=== PATIENT | female | born 1975 | race Hispanic/Latino ===

== ENCOUNTER 2017-04-15 13:42 | Emergency (ER) | payer MEDICAID, OTHER ==
[2017-04-15 13:43] VITALS: BMI 25.4
[2017-04-15 14:51] LABS: ACETAMINOPHEN < 10.0 ug/ml (10.0-20.0); SALICYLATE < 1 mg/dL (2.0-20.0)
[2017-04-15 14:52] LABS: ALB/GLOB RATIO 1.5 (1.1-1.8); ALBUMIN 4.4 g/dL (3.0-4.8); ALT/SGPT 26 U/L (7-56); AST/SGOT 23 U/L (14-36); BLOOD UREA NITROGEN 10 mg/dL (7-21); CALCIUM 9.8 mg/dL (8.4-10.5); GFR AFRICAN-AMERICAN > 60; GFR NON-AFRICAN AMERICAN > 60
[2017-04-15 15:07] LABS: HEMOGLOBIN 12.7 g/dL (12.0-16.0); MEAN CELL VOLUME 97.1 fl (80.0-105.0); MEAN CORPUSCULAR HEMOGLOBIN 30.7 pg (25.0-35.0); MEAN CORPUSCULAR HGB CONC 31.6 g/dl (31.0-37.0); RBC 4.14 10^6/uL (3.5-6.1)
[2017-04-15 15:08] LABS: BASO # 0.04 K/mm3 (0.0-2.0); BASO % 0.4 % (0.0-3.0); EOS # 0.5 (0.0-0.7); EOS % 5.3 % (1.5-5.0); GRAN # 6.16 (1.4-6.5); GRAN % 61.5 % (50.0-68.0); LYMPH # 2.7 (1.2-3.4); LYMPH % 27.2 % (22.0-35.0); MEAN PLATELET VOLUME 13.2 fl (7.0-11.0); MONO # 0.6 (0.1-0.6); MONO % 5.6 % (1.0-6.0); RED CELL DISTRIBUTION WIDTH 12.9 % (11.5-14.5)
[2017-04-15 15:13] LABS: PH,URINE 6.5 (4.7-8.0); URINE BILIRUBIN NEGATIVE (NEGATIVE); URINE BLOOD NEGATIVE (NEGATIVE); URINE GLUCOSE (UA) NEGATIVE (NEGATIVE); URINE LEUKOCYTE ESTERASE TRACE Leu/uL (NEGATIVE); URINE NITRATE NEGATIVE (NEGATIVE); URINE PROTEIN TRACE mg/dL (<30 mg/dL); URINE UROBILINOGEN 0.2 E.U./dL (<1 E.U./dL)
[2017-04-15 15:17] LABS: BARBITURATES, UR NEGATIVE (NEGATIVE); BENZODIAZEPINES, UR NEGATIVE (NEGATIVE); OPIATES, UR NEGATIVE (NEGATIVE); PHENCYCLIDINE, UR NEGATIVE (NEGATIVE)
[2017-04-15 15:24] LABS: URINE COLOR YELLOW (YELLOW)
[2017-04-15 15:45] LABS: URINE APPEARANCE SL CLOUDY (CLEAR); URINE BACTERIA MANY (NEG); URINE RBC NEGATIVE /hpf (0-2)
--- NOTE | 2017-04-15 17:05 | ED PDOC ---
Arrival/HPI - General Historian: Patient - History of Present Illness Time/Duration: Prior to Arrival - General Chief Complaint: Psychiatric Evaluation Time Seen by Provider: 04/15/17 14:17 - History of Present Illness Narrative History of Present Illness (Text): 04/15/17 17:00 42-year-old female brought in by ambulance for psychiatric evaluation. Patient with a history of PTSD presents today with family's concern for possible attempt at suicide. Patient states she was looking up how euthanasia is illegal. Patient states she she thinks people who have cancer have the right to refuse treatment and have the right to be killed. Patient states if you have PTSD you should have the right to be killed because there is no cure. She denies chest pain or shortness of breath. Denies headache dizziness or weakness. Denies any other complaints. (Marisela Hurst) Past Medical History - Provider Review Nursing Documentation Reviewed: Yes - Travel History Have you recently traveled outside [place] w/in the past 3 mons?: No - Infectious Disease Hx of Infectious Diseases: None - Reproductive Menopause: No - Cardiac Hx Cardiac Disorders: No Hx Hypertension: No - Pulmonary Hx Tuberculosis: No - Neurological HX Cerebrovascular Accident: No Hx Seizures: No - Hematological/Oncological Hx Cancer: No - Psychiatric Hx Bipolar Disorder: Yes Hx Depression: Yes Hx Panic Disorder: Yes Hx Substance Use: Yes - Surgical History Hx Section: Yes (x2) Hx Tubal Ligation: Yes - Anesthesia Hx Anesthesia Reactions: No Hx Malignant Hyperthermia: No Family/Social History - Physician Review Nursing Documentation Reviewed: Yes Family/Social History: Unknown Family HX Smoking Status: Current Some Days Smoker Hx Alcohol Use: Yes Hx Substance Use: Yes Substance used: marijuana Allergies/Home Meds Allergies/Adverse Reactions: Allergies No Known Allergies Allergy (Verified 04/15/17 14:03) Home Medications: Home Meds Medication Instructions Recorded Confirmed Zolpidem [Ambien] 10 mg PO HS 08/18/15 04/15/17 clonazePAM [clonAZEPAM] 1 mg PO DAILY 08/18/15 04/15/17 Review of Systems - Review of Systems Constitutional: absent: Fatigue, Fevers Respiratory: absent: SOB, Cough Cardiovascular: absent: Chest Pain, Palpitations Gastrointestinal: absent: Abdominal Pain, Nausea, Vomiting Genitourinary Female: absent: Dysuria, Frequency, Vaginal Bleeding Musculoskeletal: absent: Arthralgias, Back Pain, Neck Pain Skin: absent: Rash, Pruritis Neurological: absent: Headache, Dizziness Psychiatric: Depression, Suicidal Ideation Physical Exam Vital Signs Reviewed: Yes Temperature: Afebrile Blood Pressure: Hypertensive Pulse: Regular Respiratory Rate: Normal Appearance: Positive for: Well-Appearing, Non-Toxic, Comfortable Pain Distress: None Mental Status: Positive for: Alert and Oriented X 3 - Systems Exam Head: Present: Atraumatic Mouth: Present: Moist Mucous Membranes Neck: Present: Normal Range of Motion Respiratory/Chest: Present: Clear to Auscultation, Good Air Exchange. No: Respiratory Distress, Accessory Muscle Use Cardiovascular: Present: Regular Rate and Rhythm, Normal S1, S2. No: Murmurs Abdomen: No: Tenderness, Distention, Rebound, Guarding Back: Present: Normal Inspection Upper Extremity: Present: Normal ROM Lower Extremity: Present: Normal ROM Neurological: Present: GCS=15, Speech Normal Skin: Present: Warm, Dry, Normal Color. No: Rashes Psychiatric: Present: Alert, Oriented x 3, Depressed Mood Vital Signs Temp Pulse Resp BP Pulse Ox 04/15/17 22:42 100 H 18 162/88 H 97 04/15/17 19:46 98.3 F 71 18 140/67 97 04/15/17 18:08 95 H 18 155/76 H 98 04/15/17 13:57 98.6 F 96 H 16 171/91 H 98 Medical Decision Making ED Course and Treatment: 04/15/17 17:06 Patient is nontoxic well-appearing in no distress vital signs are stable. CBC WNL CMP WNL Tylenol WNL Salicylate WNL Alcohol level WNL Urine drug screen + marijuana UA; trace leukocytes cxr: wnl ekg normal sinus rhythm at 80 bpm normal axis normal intervals no ST elevations pt started on macrobid for UTI. pt is medically cleared for PES evaluation Patient was seen and evaluated by PES screener: rodríguez/ pt refused voluntary admission. pt became agitated in er; benadry and ativan given; restraints were ordered but not utilized as patient became cooperative. pt is pending [facility] evaluation. pt was seen by [facility] screener and accepted for involuntary psychiatric admission Impression; depression, SI 04/15/17 01:57 case signed out to dr. parisi pending [facility] bed availability (Marisela Hurst) 04/16/17 07:00 Case was endorsed to .Pt. awaiting bed availability/transfer. ( Kristofer Parisi) - Lab Interpretations Lab Results: 04/15/17 14:20 04/15/17 14:20 Lab Results 04/15/17 17:00: Urine HCG, Qual Negative 04/15/17 14:30: Urine Opiates Screen Negative, Urine Methadone Screen Negative, Ur Barbiturates Screen Negative, Ur Phencyclidine Scrn Negative, Ur Amphetamines Screen Negative, U Benzodiazepines Scrn Negative, U Oth Cocaine Metabols Negative, U Cannabinoids Screen Positive H 04/15/17 14:30: Urine Color Yellow, Urine Appearance Sl cloudy, Urine pH 6.5, Ur Specific Willard 1.015, Urine Protein Trace H, Urine Glucose (UA) Negative, Urine Ketones Negative, Urine Blood Negative, Urine Nitrate Negative, Urine Bilirubin Negative, Urine Urobilinogen 0.2, Ur Leukocyte Esterase Trace H, Urine RBC Negative, Urine WBC 10 - 15, Ur Epithelial Cells 6 - 8, Urine Bacteria Many 04/15/17 14:20: Alcohol, Quantitative < 10 04/15/17 14:20: Salicylates < 1 L, Acetaminophen < 10.0 L 04/15/17 14:20: Sodium 145, Potassium 3.7, Chloride 109 H, Carbon Dioxide 23, Anion Gap 17, BUN 10, Creatinine 0.8, Est GFR ( Amer) > 60, Est GFR (Non- Af Amer) > 60, Random Glucose 96, Calcium 9.8, Total Bilirubin 0.3, AST 23, ALT 26, Alkaline Phosphatase 67, Total Protein 7.2, Albumin 4.4, Globulin 2.9, Albumin/Globulin Ratio 1.5 04/15/17 14:20: WBC 10.0, RBC 4.14, Hgb 12.7, Hct 40.2, MCV 97.1, MCH 30.7, MCHC 31.6, RDW 12.9, Plt Count 266, MPV 13.2 H, Gran % 61.5, Lymph % (Auto) 27.2 , [place] % (Auto) 5.6, Eos % (Auto) 5.3 H, Baso % (Auto) 0.4, Gran # 6.16, Lymph # (Auto) 2.7, [place] # (Auto) 0.6, Eos # (Auto) 0.5, Baso # (Auto) 0.04 - RAD Interpretation Radiology Orders: 04/15/17 15:00 CHEST PORTABLE [RAD] Stat - Medication Orders Current Medication Orders: Discontinued Medications Diphenhydramine HCl (Benadryl) 50 mg IM STAT STA Stop: 04/15/17 17:43 Last Admin: 04/15/17 17:57 Dose: 50 mg IM Administration Charges Document 04/15/17 17:57 SRE (Rec: 04/15/17 17:57 SRE [id number]) Injection Site MAR Injection Site Right Gluteus Thai Charges for Administration # of IM Administrations 1 Diphenhydramine HCl (Benadryl) 50 mg IM STAT STA Stop: 04/15/17 20:38 Last Admin: 04/15/17 22:09 Dose: 50 mg IM Administration Charges Document 04/15/17 22:09 SRE (Rec: 04/15/17 22:09 SRE [id number]) Injection Site MAR Injection Site Right Vastus Lateralis Charges for Administration # of IM Administrations 1 Lorazepam (Ativan) 2 mg IM ONCE ONE PRN Reason: Protocol Stop: 04/15/17 17:43 Last Admin: 04/15/17 17:57 Dose: 2 mg IM Administration Charges Document 04/15/17 17:57 SRE (Rec: 04/15/17 17:57 SRE [id number]) Injection Site MAR Injection Site Right Gluteus Thai Charges for Administration # of IM Administrations 1 Lorazepam (Ativan) 2 mg IM ONCE ONE PRN Reason: Protocol Stop: 04/15/17 20:38 Last Admin: 04/15/17 22:08 Dose: 2 mg IM Administration Charges Document 04/15/17 22:08 SRE (Rec: 04/15/17 22:08 SRE [id number]) Injection Site MAR Injection Site Left Vastus Lateralis Charges for Administration # of IM Administrations 1 Nitrofurantoin Macrocrystals (Macrobid) 100 mg PO STAT STA Stop: 04/15/17 18:49 Last Admin: 04/15/17 21:25 Dose: 100 mg Disposition/Present on Arrival - Present on Arrival Any Indicators Present on Arrival: No History of DVT/PE: No History of Uncontrolled Diabetes: No Urinary Catheter: No History of Decub. Ulcer: No History Surgical Site Infection Following: None - Disposition Have Diagnosis and Disposition been Completed?: Yes - Disposition Diagnosis: Depression, Suicidal ideation Condition: FAIR Referrals: Bill Agrawal MD [Primary Care Provider] - Follow up with primary Forms: [employer] (Honduran)
[2017-04-15] MEDS ORDERED: DiphenhydrAMINE 50 mg/ml Inj IM STA ×2 (17:42→20:37)
[2017-04-15 18:09] VITALS: RESP 18
[2017-04-15 19:47] VITALS: TEMP 98.3; O2SAT 97
[2017-04-15 22:43] VITALS: BP 162/88; PULSE 100
--- NOTE | 2017-04-16 07:19 | ED PDOC ---
Physical Exam Vital Signs Reviewed: Yes Vital Signs Temp Pulse Resp BP Pulse Ox 04/15/17 22:42 100 H 18 162/88 H 97 04/15/17 19:46 98.3 F 71 18 140/67 97 04/15/17 18:08 95 H 18 155/76 H 98 04/15/17 13:57 98.6 F 96 H 16 171/91 H 98 Temperature: Afebrile Blood Pressure: Hypertensive Pulse: Regular Respiratory Rate: Normal Appearance: Positive for: Well-Appearing, Non-Toxic, Comfortable Pain Distress: None Mental Status: Positive for: Alert and Oriented X 3 Medical Decision Making ED Course and Treatment: 04/16/17 07:18 Case signed out to me by Dr. Francois. Pending [facility] transfer/bed availability. 04/16/17 16:29 [place] [facility] pt in [place]. - Lab Interpretations Lab Results: 04/15/17 14:20 04/15/17 14:20 Lab Results 04/15/17 17:00: Urine HCG, Qual Negative 04/15/17 14:30: Urine Opiates Screen Negative, Urine Methadone Screen Negative, Ur Barbiturates Screen Negative, Ur Phencyclidine Scrn Negative, Ur Amphetamines Screen Negative, U Benzodiazepines Scrn Negative, U Oth Cocaine Metabols Negative, U Cannabinoids Screen Positive H 04/15/17 14:30: Urine Color Yellow, Urine Appearance Sl cloudy, Urine pH 6.5, Ur Specific [place] 1.015, Urine Protein Trace H, Urine Glucose (UA) Negative, Urine Ketones Negative, Urine Blood Negative, Urine Nitrate Negative, Urine Bilirubin Negative, Urine Urobilinogen 0.2, Ur Leukocyte Esterase Trace H, Urine RBC Negative, Urine WBC 10 - 15, Ur Epithelial Cells 6 - 8, Urine Bacteria Many 04/15/17 14:20: Alcohol, Quantitative < 10 04/15/17 14:20: Salicylates < 1 L, Acetaminophen < 10.0 L 04/15/17 14:20: Sodium 145, Potassium 3.7, Chloride 109 H, Carbon Dioxide 23, Anion Gap 17, BUN 10, Creatinine 0.8, Est GFR ( Amer) > 60, Est GFR (Non- Af Amer) > 60, Random Glucose 96, Calcium 9.8, Total Bilirubin 0.3, AST 23, ALT 26, Alkaline Phosphatase 67, Total Protein 7.2, Albumin 4.4, Globulin 2.9, Albumin/Globulin Ratio 1.5 04/15/17 14:20: WBC 10.0, RBC 4.14, Hgb 12.7, Hct 40.2, MCV 97.1, MCH 30.7, MCHC 31.6, RDW 12.9, Plt Count 266, MPV 13.2 H, Gran % 61.5, Lymph % (Auto) 27.2 , Bell % (Auto) 5.6, Eos % (Auto) 5.3 H, Baso % (Auto) 0.4, Gran # 6.16, Lymph # (Auto) 2.7, Bell # (Auto) 0.6, Eos # (Auto) 0.5, Baso # (Auto) 0.04 I have reviewed the lab results: Yes - RAD Interpretation Radiology Orders: 04/15/17 15:00 CHEST PORTABLE [RAD] Stat - Medication Orders Current Medication Orders: Discontinued Medications Diphenhydramine HCl (Benadryl) 50 mg IM STAT STA Stop: 04/15/17 17:43 Last Admin: 04/15/17 17:57 Dose: 50 mg IM Administration Charges Document 04/15/17 17:57 SRE (Rec: 04/15/17 17:57 SRE [id number]) Injection Site MAR Injection Site Right Gluteus Thai Charges for Administration # of IM Administrations 1 Diphenhydramine HCl (Benadryl) 50 mg IM STAT STA Stop: 04/15/17 20:38 Last Admin: 04/15/17 22:09 Dose: 50 mg IM Administration Charges Document 04/15/17 22:09 SRE (Rec: 04/15/17 22:09 SRE [id number]) Injection Site MAR Injection Site Right Vastus Lateralis Charges for Administration # of IM Administrations 1 Lorazepam (Ativan) 2 mg IM ONCE ONE PRN Reason: Protocol Stop: 04/15/17 17:43 Last Admin: 04/15/17 17:57 Dose: 2 mg IM Administration Charges Document 04/15/17 17:57 SRE (Rec: 04/15/17 17:57 SRE [id number]) Injection Site MAR Injection Site Right Gluteus Thai Charges for Administration # of IM Administrations 1 Lorazepam (Ativan) 2 mg IM ONCE ONE PRN Reason: Protocol Stop: 04/15/17 20:38 Last Admin: 04/15/17 22:08 Dose: 2 mg IM Administration Charges Document 04/15/17 22:08 SRE (Rec: 04/15/17 22:08 SRE [id number]) Injection Site MAR Injection Site Left Vastus Lateralis Charges for Administration # of IM Administrations 1 Nitrofurantoin Macrocrystals (Macrobid) 100 mg PO STAT STA Stop: 04/15/17 18:49 Last Admin: 04/15/17 21:25 Dose: 100 mg - Scribe Statement The provider has reviewed the documentation as recorded by the Micaela Staley Provider Scribe Attestation: All medical record entries made by the Scribe were at my direction and personally dictated by me. I have reviewed the chart and agree that the record accurately reflects my personal performance of the history, physical exam, medical decision making, and the department course for this patient. I have also personally directed, reviewed, and agree with the discharge instructions and disposition. Disposition/Present on Arrival - Present on Arrival Any Indicators Present on Arrival: No History of DVT/PE: No History of Uncontrolled Diabetes: No Urinary Catheter: No History of Decub. Ulcer: No History Surgical Site Infection Following: None - Disposition Have Diagnosis and Disposition been Completed?: Yes Diagnosis: Depression, Suicidal ideation Disposition: Transfer [facility] Disposition Time: 04:30 Condition: FAIR Referrals: Bill Agrawal MD [Primary Care Provider] - Follow up with primary Forms: [employer] (Azeri)
--- NOTE | 2017-04-16 09:07 | RAD ---
HISTORY: pes eval COMPARISON: No prior. FINDINGS: LUNGS: No active pulmonary disease. PLEURA: No significant pleural effusion identified, no pneumothorax apparent. CARDIOVASCULAR: Normal. OSSEOUS STRUCTURES: No significant abnormalities. VISUALIZED UPPER ABDOMEN: Normal. OTHER FINDINGS: None. IMPRESSION: No active disease.
--- NOTE | 2017-04-16 09:56 | CARD ---
APPROVED REPORT EKG Measurement Heart [id number] <Conclusion> Normal sinus rhythm Normal ECG
--- NOTE | 2017-04-16 10:58 | CP.PCM.PCO ---
Addendum Addendum: 04/16/17 10:57 d/w , advised to medicate pt prior to transfer to [facility], pt high risk of elopement and pt is agitated and psychotic. 04/16/17 10:58
--- NOTE | 2017-04-16 21:33 | CON ---
DATE: HISTORY OF PRESENT ILLNESS: The patient is a 42-year-old female with not known previous psychiatric history. The patient was brought in for evaluation of possible suicidal ideation over the weekend. The patient was screened as it was recommended by Dr. Taylor who was on-call. The patient was evaluated by [facility]. The patient was found to be committable and at present moment, the patient is waiting for bed to be available for suicidal ideation and the patient was making statement that she is looking for several ways to commit suicide and also the patient's statement was "I'm looking for humid ways of suicide." Over the weekend, she was agitated and aggressive, the patient needed to be in four-point restraint. When this signwriter evaluated the patient in the morning time, the patient seems to be loud, agitated, pressured speech. There is no meaningful conversation possible because the patient is fixated on police and on her daughter. The patient was making statement such "my daughter called police because she had left the stove on." VITAL SIGNS: Reviewed. Temperature 98.3, pulse is 100, blood pressure 162/88, respirations 18, oxygen saturation is 97. MEDICATIONS: Reviewed. The patient got Ativan 2 mg IM yesterday at 10:08 p.m. as well as 05:57 p.m. LABORATORY DATA: Reviewed. Urinalysis showed leukocyte esterase trace. Toxicology, positive for cannabis. During the conversation, the patient was screaming that she is allergic to all of the psychotropic medications and she was threatening this signwriter that she is going to file a lawsuit if she will be given any medication. This signwriter educated the patient if she will be in control and if she will be not in danger to self or others, no medication will be given to her as injectable form and the patient was advised on she has right to refuse medications. The patient was still uncooperative, screaming, yelling, and agitated. This signwriter had collateral information from the nursing staff. The patient was agitated over the weekend, was in restraint. PAST PSYCHIATRIC HISTORY: As per the patient, she has history of being admitted to the psychiatric inpatient unit and allergies for medication, but the patient does not remember what medication she is allergic to but in the chart, not known allergies documented. MENTAL STATUS EXAMINATION: The patient seems to be disheveled, in manic stage, irritable, angry, intermittent eye contact. Speech was overproductive, pressured, loud. Mood described"I'm fine, I've right go home." Thought process seems to be circumstantial, tangential, and disorganized. Thought content, the patient obviously disorganized, paranoid, guarded. The patient denied thoughts of harming herself, but earlier the patient was making statement that she is looking for humid way to kill herself. Suicidal ideation cannot be excluded. Insight and judgment seem to be impaired at present moment. Impulses are unpredictable. IMPRESSION: Rule out schizoaffective disorder. PLAN: The patient was accepted by [facility]. At present moment, the patient is waiting for bed to be available. This signwriter started Zyprexa 0.5 mg twice a day. Risks, benefits, and alternatives explained to the patient, but the patient was refusing it. Geodon 20 mg IM q. 8 hours as needed for agitation, the patient got one dose at 09:03 and Ativan 2 mg IM q. 8 hours p.r.n. for severe agitation, dose was given 09:03 a.m. today. This signwriter spoke to the emergency room after the patient got injection. As per report, patient deemed to be calmer. This signwriter recommended discontinue restraint. PLAN: Continue current management. Continue current medication. The patient is supposed to go to [facility] for further evaluation and stabilization. Medications started. Risks, benefits, and alternatives explained to the patient. The patient supposed to be on one-to-one observation because of elopement risk and the patient is unpredictable. The patient needs to be medicated before going to [facility] because high risk of elopement. We will discuss with and nursing staff. Thank you very much for letting me participate in care of your patient. Krystal Higgins MD TESSY
== END 2017-04-16 14:41 | disposition short-term general hospital (02) ==
LOC: ED 13:42
DX: R45.851 Suicidal ideations (principal); F32.9 Major depressive disorder, single episode, unspecified
CPT/HCPCS: 71045; 80053; 80320; 80324; 80329; 80345; 80346; 80349; 80353; 80358; 80361; 81001; 83992; 84703; 85025; 87086; 87181; 90791; 93005; 96372; 99285; J1200; J2060; J3486